=== PATIENT | male | born 1975 | race African-American/Black ===

== ENCOUNTER 2024-03-30 05:38 | Inpatient (IN) | payer OTHER ==
[~2024-03-30] VITALS: Ht 170.2 cm; Wt 87.3 kg
[2024-03-30 06:07] VITALS: PULSE 149; RESP 13; O2SAT 98
[2024-03-30 07:22] LABS: Chloride 107 mmol/L (98-107); Potassium 3.2 mmol/L (3.5-5.1); Sodium 144 mmol/L (136-145)
[2024-03-30 07:23] LABS: Anion Gap 9 (5-15); Calcium 10.6 mg/dL (8.7-10.4); Carbon Dioxide 28 mmol/L (20-30)
[2024-03-30 07:25] LABS: Basophils # (auto) 0.1 10 ^3/uL (0-0.2); Basophils % (auto) 0.3 % (0.0-2.0); Eosinophils # (auto) 0 10 ^3/uL (0-0.8); Hematocrit 49.6 % (41.0-53.0); Hemoglobin 16.8 g/dL (13.5-17.5); Lymphocytes % (auto) 5.2 % (10.0-50.0); Mean Corpuscular Hemoglobin 28.4 pg (28.0-32.0); Mean Corpuscular Volume 83.6 fL (80.0-100.0); Monocytes # (auto) 0.7 10 ^3/uL (0-1.3); Monocytes % (auto) 3.6 % (0.0-12.0); Neutrophils # (auto) 17.6 10 ^3/uL (1.6-8.6); Neutrophils % (auto) 90.9 % (37.0-80.0); Nucleated Red Blood Cells % 0.1 %; Red Blood Cells 5.93 10^6/uL (4.5-5.90); Red Cell Distribution Width 14.4 % (11.8-14.3); White Blood Cell 19.4 10^3/uL (4.4-10.8)
[2024-03-30 07:28] LABS: BUN/Creatinine Ratio 8.6 (10.0-20.0); Blood Urea Nitrogen 12 mg/dL (9-23); Glucose 116 mg/dL (74-106)
[2024-03-30 08:00] VITALS: PULSE 136; RESP 12; O2SAT 95
[2024-03-30] MEDS: LORazepam 2MG/ML-1ML VIAL IV ONE (08:25)
[2024-03-30] MEDS: cefTRIAXone 1GM/50ML D5W 50 ML IV ONE (09:43)
[2024-03-30] MEDS: POTASSIUM EFFERVESENT TAB 25 MEQ PO ONE (09:44)
[2024-03-30] MEDS: SODIUM CHLORIDE 0.9% 1,000 ML IV ONE ×2 (09:44→09:45)
[2024-03-30] MEDS: ENOXAPARIN SOD 80 MG/0.8ML SYRINGE SC ONE (09:44)
[2024-03-30] MEDS ORDERED: ACETAMINOPHEN 325 MG TAB PO PRN (12:15)
[2024-03-30] MEDS ORDERED: MORPHINE SULFATE INJ 2 MG/ml SYRG IV PRN (12:15)
[2024-03-30] MEDS ORDERED: NITROGLYCERIN 0.4 MG SL TAB SL PRN (12:15)
[2024-03-30 12:30] LABS: Magnesium 2.4 mg/dL (1.6-2.6)
[2024-03-30] MEDS ORDERED: ONDANSETRON HCL 4 MG/2 ML VIAL IV PRN (13:00)
[2024-03-30 14:02] LABS: Lactic Acid w/Reflex 2.1 mmol/L (0.4-2.0)
[2024-03-30] MEDS: SODIUM CHLORIDE 0.9% 1,000 ML IV SCH (14:58)
[2024-03-30] MEDS: METOPROLOL TARTRATE 25 MG TAB PO ONE ×2 (15:06→15:07)
[2024-03-30 16:27] LABS: Amphetamine Screen, Urine Pos (NEGATIVE); Barbiturate Scree,Urine Neg (NEGATIVE); Benzodiazephine Screen, Urine Neg (NEGATIVE); Cocaine Screen, Urine Pos (NEGATIVE); Opiate Scree,Urine Neg (NEGATIVE)
[2024-03-30 16:28] LABS: Cannabinoid Screen, Urine Pos (NEGATIVE); Phencyclidine Screen, Urine Neg (NEGATIVE)
[2024-03-30 20:00] VITALS: PULSE 99; RESP 21; O2SAT 96
[2024-03-30] MEDS ORDERED: METOPROLOL TARTRATE 25 MG TAB PO SCH (22:00)
[2024-03-30] MEDS: ATORVASTATIN 20 MG TAB PO SCH (22:08)
[2024-03-30] MEDS: METOPROLOL TARTRATE 25 MG TAB PO SCH (22:09)
[2024-03-30] MEDS: ENOXAPARIN SOD 100 MG/1 ML SYRINGE SC SCH (22:11)
[2024-03-30 22:30] LABS: Urine Bacteria FEW /hpf (None Seen); Urine Blood 1+ /uL (Negative); Urine Clarity Clear (Clear); Urine Color Yellow (Yellow); Urine Protein, UAD 1+ (Negative); Urine Specific Gravity 1.047 (1.001-1.035); Urine Sperm PRESENT /hpf (None Seen); Urine Urobilinogen Normal (Negative); Urine WBC <1 /hpf (0 - 3); Urine pH 5.5 (5.0-9.0)
[2024-03-31 05:00] LABS: Alanine Aminotransferase 35 U/L (7-40); Albumin 3.9 g/dL (3.2-4.8); Alkaline Phosphatase 90 U/L (46-116); Anion Gap 6 (5-15); Aspartate Aminotransferase 54 U/L (13-40); BUN/Creatinine Ratio 7.7 (10.0-20.0); Blood Urea Nitrogen 7 mg/dL (9-23); Calcium 8.8 mg/dL (8.7-10.4); Carbon Dioxide 26 mmol/L (20-30); Chloride 108 mmol/L (98-107); Glucose 109 mg/dL (74-106); Potassium 3.3 mmol/L (3.5-5.1); Sodium 140 mmol/L (136-145)
[2024-03-31 05:01] LABS: Bilirubin, Total 1.1 mg/dL (0.2-1.0); Total Protein 6.5 g/dL (5.7-8.2)
[2024-03-31 05:05] LABS: Basophils # (auto) 0 10 ^3/uL (0-0.2); Basophils % (auto) 0.1 % (0.0-2.0); Eosinophils # (auto) 0.2 10 ^3/uL (0-0.8); Eosinophils % (auto) 1.9 % (0.0-7.0); Hematocrit 42.9 % (41.0-53.0); Hemoglobin 14.1 g/dL (13.5-17.5); Lymphocytes # (auto) 3.4 10 ^3/uL (0.4-5.4); Lymphocytes % (auto) 31.1 % (10.0-50.0); Mean Corpuscular Hemoglobin 27.9 pg (28.0-32.0); Mean Corpuscular Volume 84.6 fL (80.0-100.0); Monocytes # (auto) 0.8 10 ^3/uL (0-1.3); Monocytes % (auto) 7.1 % (0.0-12.0); Neutrophils # (auto) 6.6 10 ^3/uL (1.6-8.6); Neutrophils % (auto) 59.8 % (37.0-80.0); Red Blood Cells 5.07 10^6/uL (4.5-5.90); Red Cell Distribution Width 14.6 % (11.8-14.3)
[2024-03-31 08:05] VITALS: BP 129/81; PULSE 86; RESP 20; TEMP 97.9; O2SAT 98
[2024-03-31] MEDS: cefTRIAXone 1GM/50ML D5W 50 ML IV SCH (09:25)
[2024-03-31 18:05] VITALS: BP 129/81; PULSE 86; RESP 20; TEMP 97.9; O2SAT 98
[2024-03-31] MEDS: POTASSIUM EFFERVESENT TAB 25 MEQ PO ONE (19:15)
[2024-03-31 20:00] VITALS: PULSE 84; RESP 20; O2SAT 97
[2024-03-31 21:00] VITALS: BP 129/81; PULSE 89; RESP 16; TEMP 98.1; O2SAT 98
[2024-03-31] MEDS: VERAPAMIL HCL 120 mg ER tab PO SCH (23:12)
[2024-04-01 01:00] VITALS: BP 90/52; PULSE 98; RESP 17; TEMP 97.4; O2SAT 99
[2024-04-01 05:00] VITALS: BP 119/87; PULSE 79; RESP 16; TEMP 98; O2SAT 98
[2024-04-01 07:30] VITALS: PULSE 84; PULSE 93; RESP 20; O2SAT 97
[2024-04-01 09:00] VITALS: BP 144/94; PULSE 103; RESP 18; TEMP 97.7; O2SAT 96
[2024-04-01] MEDS ORDERED: ENOXAPARIN SOD 60 MG/0.6 ML SYRINGE SC ONE (10:00)
[2024-04-01] MEDS: ENOXAPARIN SOD 40 MG/0.4 ML SYRINGE SC SCH (10:00)
[2024-04-01] MEDS ORDERED: ATOR-507 PO (11:11)
[2024-04-01 13:00] VITALS: BP 138/80; PULSE 89; RESP 18; TEMP 98; O2SAT 96
[2024-04-01 14:23] VITALS: BP 144/94; PULSE 103; RESP 20; TEMP 36.5; O2SAT 97
== END 2024-04-01 14:45 | disposition home or self-care (01) | DRG 280 ==
LOC: ER 05:38 → EDBD 05:38 → TELE 12:12 → TELE-WESTW 03-31 17:50
PROVIDERS: ADMIT Nurse Practitioner Family; ATTEND Internal Medicine
DX: I47.10 Supraventricular tachycardia, unspecified (principal); N17.0 Acute kidney failure with tubular necrosis; I21.A1 Myocardial infarction type 2; N17.9 Acute kidney failure, unspecified; R65.10 Systemic inflammatory response syndrome (SIRS) of non-infectious origin without acute organ dysfunction; E87.6 Hypokalemia; F19.10 Other psychoactive substance abuse, uncomplicated; E78.5 Hyperlipidemia, unspecified; E66.9 Obesity, unspecified; F14.10 Cocaine abuse, uncomplicated; F15.10 Other stimulant abuse, uncomplicated; F12.10 Cannabis abuse, uncomplicated; Z88.6 Allergy status to analgesic agent; Z68.30 Body mass index [BMI] 30.0-30.9, adult; Z79.899 Other long term (current) drug therapy
CPT/HCPCS: 36415; 71275; 80048; 80053; 80061; 80307; 81001; 83605; 83735; 84443; 84484; 85025; 85379; 87040; 93005; 93306; 96365; 96375; 99291; G0378